=== PATIENT | male | born 1965 | race Caucasian/White ===

== ENCOUNTER 2023-05-14 13:49 | Emergency (ER) | payer OTHER, SELFPAY ==
[2023-05-14 13:54] VITALS: BP 185/87; PULSE 94; RESP 18; TEMP 37; O2SAT 97; BMI 28.2
--- NOTE | 2023-05-14 13:59 | ED.WOUNDLAC ---
HPI - Wound/Laceration General Time Seen by Provider: 14:00 Date Seen: 05/14/23 Chief Complaint: Laceration/Wound Stated Complaint: L thumb lac Time Seen by Provider: 05/14/23 13:51 Source: patient and RN notes reviewed Mode of arrival: ambulatory Limitations: no limitations History of Present Illness HPI narrative: Patient is a 58-year-old male coming in with an injury to his left thumb. States he probably would not have come in but he has a small area that just keeps bleeding. He had his finger crushed at work, liver came back hitting it on a flat piece of metal. Denies any numbness tingling. Nursing staff looked up is tetanus and it was last done in 2014. There is some blood underneath the base of the nail but he states the nail is not really bothering him, he brings up that he does know he may lose the nail with this injury. Only his thumb was injured in this accident. This happened just prior to arrival. He did wash his some off, put some pressure on it, notes that it just keeps bleeding out of a small area out of the thumb. He is not on any blood thinner. Place: work Patient tetanus UTD: Yes Context: accidental Related Data Home Medications Medication Instructions Recorded Confirmed No Known Home Medications 05/14/23 05/14/23 Allergies Allergy/AdvReac Type Severity Reaction Status Date / Time No Known Drug Allergies Allergy Verified 05/14/23 13:57 Review of Systems Narrative: [facility] H[facility] Social History Smoking Status: Unknown if ever smoked Do you use any of these nicotine containing products: None How often do you have a drink containing alcohol: never AUDIT-C Alcohol total score: 0 Non-prescribed substance use: denies use Exam Const: Vital Signs, click to edit/add: Vital Signs - 24 hr 05/14/23 13:54 Temperature 98.6 F Pulse Rate [Right Pulse Oximeter] 94 Respiratory Rate 18 Blood Pressure [Ri ght Upper Arm] 185/87 H Pulse Oximetry 97 Oxygen Delivery Me thod Room Air Documenting provider has reviewed patient's vital signs: yes Common normals: no apparent distress, average body habitus, oriented x3, no limitations, healthy appearing and alert General appearance: cooperative, comfortable, well kempt and well developed Other: Patient is thumb hit it is being soaked by nursing staff, removed from the liquid and he has a small little skin deficit over the medial IP joint on the dorsal surface which has some active mild venous oozing. The skin deficit is maybe only 2-3 mm but he has ongoing active bleeding. Can see some bruising around this area. Distally under the proximal nail there is a little bit of ecchymosis but patient is not really tender. He has distal sensation that is intact. Do feel little crepitus when I palpate at the IP joint. Neuro: Common normals: oriented x3 Sensorium/orientation: alert Psych: Appearance: well kempt Course Course Hospital Course: Reviewed with patient that I do think we should place a stitch or 2 across this wound to help stop the bleeding, he does agree. Have reviewed with him that we will x-ray the thumb after I placed the stitches to see if there is any underlying fracture. He is in full support of this plan. Reevaluation(s) Time of Reevaluation #1: 14:57 Reevaluation #1: Reviewed with patient that he has a distal phalanx fracture that is crushed/comminuted. We have discussed that this is an open fracture, would recommend antibiotics. This is the reason for the ongoing bleeding. Vital Signs Vital signs: Initial Vital Signs Temperature 98.6 F 05/14/23 13:54 Temperature Source Temporal Artery Scan 05/14/23 13:54 Pulse Rate 94 05/14/23 13:54 Respiratory Rate 18 05/14/23 13:54 Blood Pressure 185/87 H 05/14/23 13:54 Blood Pressure Mean 119 H 05/14/23 13:54 Blood Pressure Position Sitting 05/14/23 13:54 Pulse Oximetry 97 05/14/23 13:54 Oxygen Delivery Method Room Air 05/14/23 13:54 Vital Signs Temperature 98.6 F 05/14/23 13:54 Pulse Rate 94 05/14/23 13:54 Respiratory Rate 18 05/14/23 13:54 Blood Pressure 185/87 H 05/14/23 13:54 Pulse Oximetry 97 05/14/23 13:54 Oxygen Delivery Method Room Air 05/14/23 13:54 Temperature 98.6 F 05/14/23 13:54 Pulse Rate 94 05/14/23 13:54 Respiratory Rate 18 05/14/23 13:54 Blood Pressure 185/87 H 05/14/23 13:54 Pulse Oximetry 97 05/14/23 13:54 Oxygen Delivery Method Room Air 05/14/23 13:54 MDM - Wound/Laceration Imaging Data XR left thumb: My impression: Distal phalanx comminuted fracture. Radiology over-read is pending. Critical Care Time Critical Care Time Critical Care Time: No Discharge Plan Discharge Clinical Impression: Fracture of thumb, left, open Patient Disposition: Home, Self-Care Condition: Stable Instructions: Thumb Fracture (ED) Additional Instructions: Start oral antibiotics tonight and take as prescribed to help prevent any infection. This is considered an open fracture. Leave the bulky dressing on for 24 hours, then can go to bandages as needed over the stone/laceration area of the thumb. Use the frog splint for immobilization once the bulky dressing is off. Tylenol and ibuprofen per bottle directions as needed for any pain management. Really try to ice and elevate this thumb as much as possible the next couple of days to help decrease pain, swelling, bleeding. You will need to follow up with Orthopedics, call [phone] to get scheduled for that appointment. Prescriptions: No Action No Known Home Medications Stand Alone Forms: MyHealth Info Instructions Procedures Laceration Laceration 1: Pre procedure diagnosis: Bleeding thumb laceration Post procedure diagnosis: Same Site marking: not applicable Name of person performing procedure: Edelmira Maurer Site: other (Left thumb) Side (If applicable): left Size (cm): 0.3 Description: irregular Depth: simple, single layer Local Anesthetic: lidocaine 2% Amount of anesthesia used (mL): 3 Pre-repair: wound explored and irrigated extensively Skin layer closed with: other (Ethilon) Size (cm): 4-0 Number of sutures: 2 Technique: simple, interrupted (2 stitches placed, good hemostasis observed after that.) Estimated blood loss (if any): less than 5mls Conclusion: patient tolerated procedure
--- NOTE | 2023-05-14 14:13 | CRLHL7_ITS ---
For Patients: As a result of the Century Cures Act, medical imaging exams and procedure reports are released immediately into your electronic medical record. You may view this report before your referring provider. If you have questions, please contact your health care provider. Indication: Injury Technique: A total of three views of the left thumb were acquired. Comparison: None Findings: Bones: Comminuted crush type fracture of most of the distal phalanx of the left thumb. This has an intra-articular component. Joint spaces: No dislocation Soft tissues: Soft tissue swelling. No foreign body. Impression: Comminuted crush type fracture the distal phalanx of the left thumb. Intra-articular. No dislocation. Soft tissue swelling. No foreign body. Dictated by Luis Coreas MD @ 05/14/2023 3:06:58 PM (Electronically Signed)
[2023-05-14] MEDS: lidocaine HCL 2 % MULTIDOSE 20 ML VIAL 3 ML INJECTION (15:08)
== END 2023-05-14 15:11 | disposition home or self-care (01) ==
PROVIDERS: Emergency Provider Family Medicine
DX: S62.522B Displaced fracture of distal phalanx of left thumb, initial encounter for open fracture (principal); W20.8XXA Other cause of strike by thrown, projected or falling object, initial encounter; Y99.0 Civilian activity done for income or pay
CPT/HCPCS: 12001; 73140; 99283; 99284

== ENCOUNTER 2023-07-18 15:15 | Outpatient (RCR) | payer OTHER, SELFPAY ==
--- NOTE | 2023-06-04 19:46 | OT.OPOE ---
OT Outpatient Ortho Eval OT Outpatient Ortho Eval* Start: 06/04/23 11:52 Freq: Status: Active Protocol: Document 06/04/23 11:52 SJK (Rec: 06/04/23 12:18 SJK Desktop) E-signed By Cinthya Red OTDerrell/Maria Victoria, TRACY OT OP Ortho Eval Details Complexity Complexity Medium Insurance Information Insurance Information Workman's Comp Outpatient History/Precautions Current Condition/Medical Diagnosis Referring Provider TERRI Huitron Treatment Diagnosis Pain in L fingers M79.64; Stiffness of hand M25.64 Date of Onset DOI: 05/14/23. Work Comp Injury Other Precautions PA discussed with patient to continue to cleanse his left thumb 2-3x/day with soap and water. Keep wound clean and dry. Patient should continue to wear his foam finger splint while at work, but remove this to massage edema proximally and work on gentle thumb ROM while at home. Order from provider to work on passive and active thumb range of motion and swelling management as tolerated. Other Conditions Closed treatment of an open, acute, comminuted, intra- articular left thumb distal phalanx fracture. DOI: 05/14/23 . 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 [employer] Demands Pull,Lift,Overhead Reach Ortho Subjective Subjective Subjective I want to be able to use my thumb I'm worried about how swollen it is Pain Assessment Pain Present Pain Present Pain Reported Location Left Hand Description Tightness,Throbbing,Heaviness Intensity 5 Hand Pinch/Machine Setter Supervisor Strength Hand Right Machine Setter Supervisor Strength Position 1 (lbs) 97 Machine Setter Supervisor Strength Position 2 (lbs) 99 Lateral Pinch Strength (lbs) 25 Three Point Pinch (lbs) 20 Tip Pinch Strength (lbs) 19 Left Machine Setter Supervisor Strength Position 1 (lbs) 101 Machine Setter Supervisor Strength Position 2 (lbs) 94 Lateral Pinch Strength (lbs) 14 Three Point Pinch (lbs) 12 Tip Pinch Strength (lbs) 9 OT Problems Problems Problems Decreased Strength,Decreased Range of Motion,Decreased Dexterity,Pain,Decreased Coordination,Lifting,Gripping, Pinching Other Problems Opening Containers,Fasteners Patient Potential Good Assessment Assessment Assessment 58 year old male patient suffered a crush injury while at work on 05/14/23. While at work, patient crushed his left thumb on a metal item while adjusting an item. Immediate left thumb pain. Patient was seen at [facility] the same where imaging showed an acute distal phalanx fracture. The wound was cleansed and closed with nylon sutures. He was placed in an aluminum foam splint and given a course of cephalexin. Today in clinic, observation and clinical findings of the Left thumb: Wound appears healthy and nearly healed without drainage , erythema, or induration. Large amount of diffuse soft tissue swelling present. Subungual hematoma present proximal half of nail. Nail plate is intact. Red pinpoint area with surrounding erythema and swelling over first dorsal interosseous muscle. Moderate tenderness diffusely over distal phalanx. Flexion of IP joint ROM limited due to swelling and pain. Patient is able to fully extend the IP joint. Color: [place], warm digit with brisk capillary refill. Sensation (hot/cold; pressure and light touch) confirmed over radial and ulnar aspect of the thumb both proximal and distal locations. Occupational Therapy Treatment Plan - OP Potential Rehabilitation Potential Good Set Goals Goals Set with Patient Yes Goals Target Date 6 weeks Treatment Plan Treatment Plan Evaluation,Edema Control,Joint Mobilization,Manual Therapy, Ultrasound,Wound Care/Scar Management,Therapeutic Exercise Expected Frequency 1-2x Week Expected Duration 6-8 Weeks Home Program Home Program Home Program Initiated Home Program Specifics Access Code: [email or web address] URL: [email or web address] Date: 06/04/2023 Prepared by: Cinthya Red Exercises - Thumb Abduction AROM on Table - 1 x daily - 7 x weekly - 3 sets - 10 reps - Thumb AROM Opposition To All Fingers - 1 x daily - 7 x weekly - 3 sets - 10 reps - Seated Thumb Composite Flexion AROM - 1 x daily - 7 x weekly - 3 sets - 10 reps - Thumb AROM MP Blocking - 1 x daily - 7 x weekly - 3 sets - 10 reps - Seated Thumb IP Flexion AROM with Blocking - 1 x daily - 7 x weekly - 3 sets - 10 reps - Thumb Radial Adduction with Thumb Flexion AROM on Table - 1 x daily - 7 x weekly - 3 sets - 10 reps - Seated Thumb Extension - 1 x daily - 7 x weekly - 3 sets - 10 reps Certification Certification I Certify That: Therapy Services Provided, Therapy Plan Established, Therapy Plan Reviewed Recertification Information Recertification Information Initial Certification Date 06/04/23 Recertification Due Date 09/02/23 Provider Signature Shows Agreement With POC & Medical Necessity Physician Comment/Change Comment or Changes Physician NPI Number #
== END 2023-07-18 16:02 | disposition home or self-care (01) ==
PROVIDERS: Visit Provider Physician Assistant Surgical
DX: S62.639A Displaced fracture of distal phalanx of unspecified finger, initial encounter for closed fracture (principal); Z51.89 Encounter for other specified aftercare
CPT/HCPCS: 97110; 97140; 97166; X5282